=== PATIENT | female | born 1945 | race Caucasian/White ===

== ENCOUNTER 2021-09-08 09:04 | Emergency (ER) | payer OTHER, BC ==
[~2021-09-08] VITALS: Ht 172.7 cm; Wt 56.7 kg
[2021-09-08] MEDS ORDERED: TAMS0.4C PO (09:15)
[2021-09-08] MEDS ORDERED: ATORVASTATIN CA10 MG PO (09:16)
[2021-09-08] MEDS ORDERED: NASAL SPRAY30 ML (09:17)
[2021-09-08] MEDS ORDERED: FLONASE16 GM NASAL (11:34)
[2021-09-08] MEDS ORDERED: ZITHROMAX TRI-500 MG PO (11:34)
[2021-09-08] MEDS ORDERED: CLARITIN10 MG PO (11:35)
== END 2021-09-08 11:39 | disposition home or self-care (01) ==
LOC: ER 09:04
DX: B34.9 Viral infection, unspecified (principal); Z20.822 Contact with and (suspected) exposure to COVID-19